=== PATIENT | female | born 1990 | race Caucasian/White ===

== ENCOUNTER 2016-08-06 14:02 | Outpatient (CLI) | payer BC, MEDICAID ==
[~2016-08-06] VITALS: Ht 182.9 cm; Wt 134.5 kg
[2016-08-06 15:03] LABS: HEMOGLOBIN 13.7 g/dL (11.7-16.4)
[2016-08-06 15:14] LABS: ASPARTATE AMINO TRANSFERASE 14 U/L (15-37); BLOOD UREA NITROGEN 8 mg/dL (7-18)
[2016-08-06 16:42] VITALS: BP 137/91
[2016-08-06 17:50] VITALS: BP 139/95
== END 2016-08-06 17:53 | disposition home or self-care (01) ==
LOC: LDOP 14:02
PROVIDERS: ATTEND Obstetrics & Gynecology
DX: O13.3 Gestational [pregnancy-induced] hypertension without significant proteinuria, third trimester (principal); O62.9 Abnormality of forces of labor, unspecified; Z3A.39 39 weeks gestation of pregnancy
CPT/HCPCS: 36415; 59025; 80053; 81001; 82248; 82570; 84156; 84550; 85025; 99211; G0463

== ENCOUNTER 2016-08-07 12:41 | Outpatient (CLI) | payer BC, MEDICAID ==
[~2016-08-07] VITALS: Ht 182.9 cm; Wt 118.1 kg
[2016-08-07 12:57] VITALS: BP 131/87
== END 2016-08-07 13:29 | disposition home or self-care (01) ==
LOC: RAD 12:41 → LDOP 13:29
PROVIDERS: ATTEND Specialist
DX: O26.893 Other specified pregnancy related conditions, third trimester (principal); R51 Headache; O48.0 Post-term pregnancy; Z3A.40 40 weeks gestation of pregnancy
CPT/HCPCS: 59025; 99211; G0463